=== PATIENT | female | born 1955 | race Caucasian/White ===

== ENCOUNTER 2022-04-04 13:16 | Outpatient (CLI) | payer OTHER | END 2022-04-04 13:29 | disposition home or self-care (01) | LOC: MAMO-SONO 13:16 | PROVIDERS: ATTEND Internal Medicine | DX: Z01.810 Encounter for preprocedural cardiovascular examination (principal); N60.11 Diffuse cystic mastopathy of right breast; I10 Essential (primary) hypertension; M54.50 Low back pain, unspecified; E03.9 Hypothyroidism, unspecified; E78.9 Disorder of lipoprotein metabolism, unspecified; E55.9 Vitamin D deficiency, unspecified; G62.9 Polyneuropathy, unspecified; M89.9 Disorder of bone, unspecified ==

== ENCOUNTER → 2022-04-04 | Outpatient (CLI) | payer OTHER | END | disposition home or self-care (01) | LOC: NUCLEAR 14:48 | PROVIDERS: ATTEND Internal Medicine | DX: M89.9 Disorder of bone, unspecified (principal); I10 Essential (primary) hypertension; M54.59 Other low back pain; Z01.810 Encounter for preprocedural cardiovascular examination; E03.9 Hypothyroidism, unspecified; E78.9 Disorder of lipoprotein metabolism, unspecified; E55.9 Vitamin D deficiency, unspecified; E11.51 Type 2 diabetes mellitus with diabetic peripheral angiopathy without gangrene; E66.8 Other obesity; G62.9 Polyneuropathy, unspecified; E11.42 Type 2 diabetes mellitus with diabetic polyneuropathy ==

== ENCOUNTER 2022-07-23 06:58 | Day surgery (SDC) | payer OTHER ==
[~2022-07-23 06:58] MED LIST: BUSPIRONE HCL15 MG PO; CRESTOR5 MG PO; ESCITAL PO; ESCITALOPRAM OX20 MG PO; GLIMEPIRIDE2 M1 PO; PANTOPRAZOLE SO40 M2 PO; PREDNISONE PO; SUCRALFATE1 GM PO; ZESTRIL5 MG PO
== END 2022-07-23 14:20 | disposition home or self-care (01) ==
LOC: CIR.AMB 06:58
PROVIDERS: ATTEND Specialist
DX: D24.1 Benign neoplasm of right breast (principal); N60.91 Unspecified benign mammary dysplasia of right breast; N60.31 Fibrosclerosis of right breast; N60.41 Mammary duct ectasia of right breast; N60.81 Other benign mammary dysplasias of right breast; R92.0 Mammographic microcalcification found on diagnostic imaging of breast; I10 Essential (primary) hypertension; E78.5 Hyperlipidemia, unspecified; E11.9 Type 2 diabetes mellitus without complications; Z79.84 Long term (current) use of oral hypoglycemic drugs; F41.8 Other specified anxiety disorders; Z88.0 Allergy status to penicillin; Z88.6 Allergy status to analgesic agent

== ENCOUNTER 2022-08-21 08:17 | Outpatient (CLI) | payer OTHER | END 2022-08-21 08:23 | disposition home or self-care (01) | LOC: SONOGRAMA 08:17 | PROVIDERS: ATTEND Internal Medicine | DX: K80.20 Calculus of gallbladder without cholecystitis without obstruction (principal); M54.50 Low back pain, unspecified ==

== ENCOUNTER 2022-10-02 07:05 | Outpatient (CLI) | payer OTHER | END 2022-10-02 07:06 | disposition home or self-care (01) | LOC: NUCLEAR 07:05 | PROVIDERS: ATTEND Specialist | DX: R10.9 Unspecified abdominal pain (principal); Z88.5 Allergy status to narcotic agent; Z88.0 Allergy status to penicillin | CPT/HCPCS: 78227; A9537; J2805 ==

== ENCOUNTER 2022-11-21 15:07 | Emergency (ER) | payer OTHER ==
[~2022-11-21] VITALS: Ht 160 cm; Wt 74.8 kg
[2022-11-21] MEDS ORDERED: ONDANSETRON ODT8 MG PO (18:20)
[2022-11-21] MEDS ORDERED: MEDI-MECLIZINE25 MG PO (18:20)
[2022-11-21] MEDS ORDERED: GLIMEPIRIDE4 M1 PO (18:20)
[2022-11-21] MEDS ORDERED: GLIMEPIRIDE2 M1 PO (18:20)
== END 2022-11-21 18:56 | disposition home or self-care (01) ==
LOC: ER 15:07
DX: R42 Dizziness and giddiness (principal); E11.9 Type 2 diabetes mellitus without complications; Z79.84 Long term (current) use of oral hypoglycemic drugs; Z88.0 Allergy status to penicillin; Z88.8 Allergy status to other drugs, medicaments and biological substances; R11.2 Nausea with vomiting, unspecified; Z20.822 Contact with and (suspected) exposure to COVID-19

== ENCOUNTER 2022-12-02 10:46 | Outpatient (CLI) | payer OTHER ==
[~2022-12-02 10:46] MED LIST changes: +GLIMEPIRIDE4 M1 PO; +MEDI-MECLIZINE25 MG PO; +ONDANSETRON ODT8 MG PO
== END 2022-12-02 14:47 | disposition home or self-care (01) ==
LOC: TOM 10:46
DX: R10.9 Unspecified abdominal pain (principal); K59.00 Constipation, unspecified